=== PATIENT | male | born 1995 | race Caucasian/White ===

== ENCOUNTER 2020-09-25 18:21 | Day surgery (SDCO) | payer OTHER ==
[~2020-09-25] VITALS: Ht 175.3 cm; Wt 177.0 kg
[2020-09-25 19:56] LABS: BASOPHIL 0.3 % (0-2); EOSINOPHIL 0.1 % (0-5); HCT 48.8 % (42.0-52.0); LYMPHOCYTE 4.9 % (15-48); MCHC 32.8 g/dL (32.0-36.0); MCV 82.3 fL (78.0-100.0); MONOCYTE 3.9 % (0-12); MPV 10.5 fL (6.0-9.5); NEUTROPHIL 90.4 % (41-80); NRBC 0; PLT 394 K/uL (150-400); RBC 5.93 M/uL (4.70-6.00); RDW 13.4 % (11.5-14.0); WBC 15.6 K/uL (4.0-10.5)
[2020-09-25 20:03] LABS: ALBUMIN 3.9 g/dL (3.4-5.0); BILIRUBIN - TOTAL 1.1 mg/dL (0.2-1.0); BUN/CREAT RATIO (CALC) 17.1 RATIO; CREATININE 0.7 mg/dL (0.67-1.17); GLOBULIN (CALCULATION) 4.7 g/dL; POTASSIUM 4.1 mmol/L (3.5-5.1); TOTAL PROTEIN 8.6 g/dL (6.4-8.2)
[2020-09-25 23:09] LABS: BILIRUBIN NEGATIVE (NEGATIVE); BLOOD NEGATIVE Ery/uL (NEGATIVE); CLARITY CLEAR (CLEAR); COLOR YELLOW (YELLOW); GLUCOSE (U) NORMAL (NORMAL); LEUKOCYTES NEGATIVE Leu/uL (NEGATIVE); NITRITE NEGATIVE (NEGATIVE); PROTEIN NEGATIVE (NEGATIVE); SPECIFIC GRAVITY 1.015 (1.001-1.030); UROBILINOGEN 0.2 mg/dL (0.2-1.0); pH 5.5 (5.0-9.0)
[2020-09-26 00:06] LABS: CORONAVIRUS 2019 SARS-COV-2 NEGATIVE (NEGATIVE); INFLUENZA A NAA NEGATIVE (NEGATIVE)
[2020-09-26] MEDS ORDERED: LISINOPRIL 2.52.5 MG PO (03:23)
[2020-09-26 05:49] LABS: BASOPHIL 0.4 % (0-2); EOSINOPHIL 0.7 % (0-5); HCT 42.4 % (42.0-52.0); LYMPHOCYTE 12.4 % (15-48); MCV 81.7 fL (78.0-100.0); MONOCYTE 8.5 % (0-12); MPV 10.1 fL (6.0-9.5); NEUTROPHIL 77.8 % (41-80); NRBC 0; PLT 286 K/uL (150-400); RBC 5.19 M/uL (4.70-6.00); RDW 13.5 % (11.5-14.0); WBC 8.9 K/uL (4.0-10.5)
[2020-09-26 06:21] LABS: ALBUMIN 3.1 g/dL (3.4-5.0); BILIRUBIN - TOTAL 1.3 mg/dL (0.2-1.0); BUN/CREAT RATIO (CALC) 13.9 RATIO; CREATININE 0.79 mg/dL (0.67-1.17); GLOBULIN (CALCULATION) 3.4 g/dL; MAGNESIUM 1.6 mg/dL (1.8-2.4); POTASSIUM 4.2 mmol/L (3.5-5.1)
[2020-09-26 06:26] LABS: TOTAL PROTEIN 6.5 g/dL (6.4-8.2)
--- NOTE | 2020-09-26 09:10 | NUR ---
PATIENT REPORTED FEELING "WARM ALL OVER" AND PRSENTED WITH FLUSHED CHEEKS. PATIENT REPORTED HEADACHE, ALL SYMPTOMS WERE REPORTED POST INITIATION OF MAGNESIUM GTT. CALLED AND NOTIFYED PROVIDER, DR PRAMOD DR ORDERED TO D/C MAGNESIUM GTT. MAG D/C AND IV LINE FLUSED WITH NS IMMEDIATLEY AFTER PATIENT REPORTED SYMPTOMS. NO DISTRESS NOTED.
--- NOTE | 2020-09-26 13:03 | NUR ---
09/26/20 Discharge is anticipated for today. No discharge planning needs are anticipated.
[2020-09-26] MEDS ORDERED: IMODIUM2 MG PO (13:07)
== END 2020-09-26 14:39 | disposition home or self-care (01) ==
LOC: FER 18:21 → FMS 22:55
PROVIDERS: Nurse Practitioner; Nurse Practitioner Family; ADMIT Internal Medicine
DX: K52.9 Noninfective gastroenteritis and colitis, unspecified (principal); E87.2 Acidosis; Z88.2 Allergy status to sulfonamides; I10 Essential (primary) hypertension; G47.30 Sleep apnea, unspecified; E66.9 Obesity, unspecified; N20.0 Calculus of kidney; Z20.822 Contact with and (suspected) exposure to COVID-19; K76.0 Fatty (change of) liver, not elsewhere classified; R00.0 Tachycardia, unspecified
CPT/HCPCS: 36415; 36430; 71045; 76705; 80053; 81003; 82150; 83605; 83690; 83735; 84145; 85025; 87040; 87339; 93005; 94010; C9113; G0378; J1200; J2405; J2543; J3475; J7030; J7120; Q9967; U0002